=== PATIENT | female | born 1990 | race American Indian/Alaskan Native ===

== ENCOUNTER 2017-08-18 07:45 | Outpatient (CLI) | payer OTHER ==
--- NOTE | 2017-08-19 07:55 | PET Report ---
PET SB TO MT SUBSEQUENT: HISTORY: Hodgkin's lymphoma. TECHNIQUE: 14.3 millicuries F-18 FDG was administered intravenously. Noncontrast CT images and PET images were obtained from the skull base to the proximal thighs. Fused images were reviewed on a workstation. The patient's blood glucose level measured 90. COMPARISON: No comparison at this facility. FINDINGS: BRAIN: physiologic FDG uptake in the imaged brain. NECK: physiologic FDG uptake. MEDIASTINUM: physiologic FDG uptake. LUNGS: physiologic FDG uptake. A 6 mm well-circumscribed nodule is identified in the right upper lobe on image 121. Max SUV measures 0.9. Comparison with previous studies would be helpful if available. Overall this has a benign appearance. No other pulmonary nodules. PLEURA/PERICARDIUM: physiologic FDG uptake. THORACIC LYMPH NODES: physiologic FDG uptake. HEPATOBILIARY: physiologic FDG uptake. Mean liver SUV measures 3.0. PANCREAS: physiologic FDG uptake. SPLEEN: physiologic FDG uptake. ADRENAL GLANDS: physiologic FDG uptake. KIDNEYS/RENAL COLLECTING SYSTEMS: physiologic FDG uptake. BOWEL/MESENTERY: physiologic FDG uptake. PELVIC VISCERA: physiologic FDG uptake. Mild uptake in the left ovary is noted. ABDOMINAL/PELVIC LYMPH NODES: physiologic FDG uptake. MUSCULOSKELETAL: physiologic FDG uptake. COMMENT: Extensive brown fat uptake in the neck and paraspinal regions is noted. IMPRESSION: Negative PET/CT. No evidence of current active disease. 6 mm benign-appearing right upper lobe nodule as outlined above.
== END 2017-08-18 07:46 | disposition home or self-care (01) ==
LOC: PET 07:45
PROVIDERS: ATTEND Internal Medicine Hematology & Oncology
DX: C81.91 Hodgkin lymphoma, unspecified, lymph nodes of head, face, and neck (principal); R91.1 Solitary pulmonary nodule; Z83.49 Family history of other endocrine, nutritional and metabolic diseases; Z72.0 Tobacco use; Z79.899 Other long term (current) drug therapy
CPT/HCPCS: 78815; 82962; A9552